=== PATIENT | female | born 1990 | race Caucasian/White ===

== ENCOUNTER 2016-07-30 14:13 | Emergency (ER) | payer SELFPAY ==
[~2016-07-30] VITALS: Ht 175.3 cm; Wt 95.5 kg
[~2016-07-30 14:13] MED LIST: CEPH-460 PO; HYDR-3533 PO; IBUP800T23 PO; LISI10TA3 PO
[2016-07-30 14:17] VITALS: BP 133/67; PULSE 67; RESP 18; TEMP 98.7; O2SAT 99
[2016-07-30] MEDS ORDERED: SODIUM CHLOR 0.9% 1000 ML INJ 1,000 ML IV SCH (15:26)
[2016-07-30] MEDS ORDERED: MORPHINE SULFATE 4 MG/ML INJ IV PUSH ONE (15:30)
[2016-07-30] MEDS ORDERED: ONDANSETRON HCL 4 MG/2 ML VIAL IVP ONE (15:30)
--- NOTE | 2016-07-30 15:32 | PD ---
HPI Chief Complaint: Abdominal Pain Time Seen by Provider: 15:02 Travel History International Travel<30 days: No Contact w/Intl Traveler<30days: No Traveled to known affect area: No History of Present Illness HPI 26-year-old female complains of right low quadrant abdominal pain. Patient states the pain started this morning. Patient stated the pain is sharp pain started at the right lower quadrant of the abdomen with rates into the chest. Patient denies any fever chills. Patient denies any coughing congestion. Patient denies any nausea vomiting diarrhea. Patient denies dysuria or frequency. Patient denies any vaginal discharge or bleeding. On a scale of 1- 10 the pain is an 8. PFSH Past Medical History Asthma: No Blood Disorders: No Anxiety: No Depression: No Heart Rhythm Problems: No Cancer: No Cardiovascular Problems: Yes High Cholesterol: No Chemotherapy: No Chest Pain: No Congestive Heart Failure: No COPD: No Diabetes: No Endocrine: No Genitourinary: No Hypertension: Yes Immune Disorder: No Musculoskeletal: No Neurologic: No Psychiatric: No Reproductive: No Respiratory: No Radiation Therapy: No Sleep Apnea: No Thyroid Disease: No ?: Not LMP: 07/12/2016 Past Surgical History Cholecystectomy: Yes Other Surgery: Yes (gallbladder removal 2014) Social History Alcohol Use: No Tobacco Use: No Substance Use: No Allergies-Medications (Allergen,Severity, Reaction): Coded Allergies: No Known Allergies (Unverified , 07/30/16) Reported Meds & Prescriptions Reported Meds & Active Scripts Active Reported Lisinopril 10 Mg Tab 10 Mg PO DAILY Review of Systems General / Constitutional: No: Fever Eyes: No: Visual changes HENT: No: Headaches Cardiovascular: No: Chest Pain or Discomfort Respiratory: No: Shortness of Breath Gastrointestinal: Positive: Abdominal Pain Genitourinary: No: Dysuria Musculoskeletal: No: Pain Skin: No Rash Neurologic: No: Weakness Psychiatric: No: Depression Endocrine: No: Polydipsia Hematologic/Lymphatic: No: Easy Bruising Physical Exam Narrative GENERAL: Well-nourished, well-developed patient. SKIN: Warm and dry. HEAD: Normocephalic. EYES: No scleral icterus. No injection or drainage. NECK: Supple, trachea midline. No JVD or lymphadenopathy. CARDIOVASCULAR: Regular rate and rhythm without murmurs, gallops, or rubs. RESPIRATORY: Breath sounds equal bilaterally. No accessory muscle use. GASTROINTESTINAL: Abdomen soft, nondistended. Patient has moderate tenderness on palpation right mid abdomen. No rebound tenderness. No mass. MUSCULOSKELETAL: No cyanosis, or edema. BACK: Nontender without obvious deformity. No CVA tenderness. Neurologic exam normal. Data Data Last Documented VS Vital Signs Date Time Temp Pulse Resp B/P Pulse Ox O2 Delivery O2 Flow Rate FiO2 07/30/16 15:42 67 16 131/69 97 Room Air 07/30/16: 98.7 Orders Complete Blood Count With Diff (07/30/16 15:26) Comprehensive Metabolic Panel (07/30/16 15:26) Lipase (07/30/16 15:26) Prothrombin Time / Inr (Pt) (07/30/16:) Act Partial Throm Time (Ptt) (07/30/16 15:26) Urinalysis - C+S If Indicated (07/30/16 15:26) Ct Abd/Pel W Iv Contrast(Rout) (07/30/16 15:26) Iv Access Insert/Monitor (07/30/16 15:26) Ecg Monitoring (07/30/16 15:26) Oximetry (07/30/16 15:26) Morphine Inj (Morphine Inj) (07/30/16 15:30) Ondansetron Inj (Zofran Inj) (07/30/16 15:30) Sodium Chlor 0.9% 1000 Ml Inj (Ns 1000 M (07/30/16 15:26) Ed Urine Pregnancytest Poc (07/30/16 15:29) Iohexol 350 Inj (Omnipaque 350 Inj) (07/30/16 16:58) Labs Laboratory Tests Test 07/30/16 07/30/16 14:28 15:33 White Blood Count 10.3 TH/MM3 Red Blood Count 4.57 MIL/MM3 Hemoglobin 12.9 GM/DL Hematocrit 37.6 % Mean Corpuscular Volume 82.2 FL Mean Corpuscular Hemoglobin 28.2 PG Mean Corpuscular Hemoglobin 34.3 % Concent Red Cell Distribution Width 14.1 % Platelet Count 280 TH/MM3 Mean Platelet Volume 9.4 FL Neutrophils (%) (Auto) 64.6 % Lymphocytes (%) (Auto) 24.1 % Monocytes (%) (Auto) 10.0 % Eosinophils (%) (Auto) 1.0 % Basophils (%) (Auto) 0.3 % Neutrophils # (Auto) 6.7 TH/MM3 Lymphocytes # (Auto) 2.5 TH/MM3 Monocytes # (Auto) 1.0 TH/MM3 Eosinophils # (Auto) 0.1 TH/MM3 Basophils # (Auto) 0.0 TH/MM3 CBC Comment DIFF FINAL Differential Comment Prothrombin Time 11.2 SEC Prothromb Time International 1.0 RATIO Ratio Activated Partial 27.1 SEC Thromboplast Time Sodium Level 140 MEQ/L Potassium Level 4.3 MEQ/L Chloride Level 106 MEQ/L Carbon Dioxide Level 26.2 MEQ/L Anion Gap 8 MEQ/L Blood Urea Nitrogen 8 MG/DL Creatinine 0.66 MG/DL Estimat Glomerular Filtration 107 ML/MIN Rate Random Glucose 74 MG/DL Calcium Level 8.5 MG/DL Total Bilirubin 0.5 MG/DL Aspartate Amino Transf 38 U/L (AST/SGOT) Alanine Aminotransferase 31 U/L (ALT/SGPT) Alkaline Phosphatase 57 U/L Total Protein 6.6 GM/DL Albumin 3.4 GM/DL Lipase 92 U/L Urine Color YELLOW Urine Turbidity HAZY Urine pH 7.0 Urine Specific [place] 1.016 Urine Protein NEG mg/dL Urine Glucose (UA) NEG mg/dL Urine Ketones NEG mg/dL Urine Occult Blood NEG Urine Nitrite NEG Urine Bilirubin NEG Urine Urobilinogen LESS THAN 2.0 MG/DL Urine Leukocyte Esterase NEG Urine RBC 3 /hpf Urine WBC 2 /hpf Urine Squamous Epithelial 1 /hpf Cells Microscopic Urinalysis Comment CULT NOT INDICATED MDM Medical Decision Making Medical Screen Exam Complete: Yes Emergency Medical Condition: Yes Interpretation(s) [address] scan abdomen pelvis showed mild free fluid in the pelvis. CBC within normal limit. CMP within normal limit. UA is negative. Urine test negative. Differential Diagnosis Differential diagnosis including colitis, UTI, pyelonephritis, nephrolithiasis, ovarian cyst, ovarian torsion, ectopic , PID Narrative Course 26-year-old female with right mid abdominal pain. Toradol 30 mg IV given. Diagnosis Primary Impression: Ruptured ovarian cyst Patient Instructions: General Instructions Additional Instructions: Medication as needed for pain. 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 Return if persistent problem or worse. Med/Other Pt SpecificInfo: Prescription(s) given Scripts Tramadol (Ultram)50 Mg Tab50 Mg PO Q6H PRN (PAIN) #20 TAB Prov:lR Mims MD 07/30/16 Meloxicam (Mobic)15 Mg Tab15 Mg PO DAILY #20 TAB Prov:Rl Mims MD 07/30/16 Disposition: 01 DISCHARGE HOME Condition: Stable Rl Mims MD Jul 30, 2016 15:32
[2016-07-30 15:39] VITALS: O2SAT 100
[2016-07-30 15:42] VITALS: BP 131/69; PULSE 67; RESP 16; O2SAT 97
[2016-07-30 15:44] LABS: AUTOMATED NEUTROPHIL # 6.7 TH/MM3 (1.8-7.7); BASOPHIL % 0.3 % (0.0-2.0); EOSINOPHIL # 0.1 TH/MM3 (0-0.4); HEMATOCRIT 37.6 % (35.0-46.0); HEMO FLAGS DIFF FINAL; LYMPH % 24.1 % (9.0-44.0); LYMPHOCYTE # 2.5 TH/MM3 (1.0-4.8); MEAN CELL VOLUME 82.2 FL (80.0-100.0); MEAN CORPUSCULAR HEMOGLOBIN 28.2 PG (27.0-34.0); MEAN CORPUSCULAR HGB CONC 34.3 % (32.0-36.0); NEUT % 64.6 % (16.0-70.0); PLATELET COUNT 280 TH/MM3 (150-450); RED BLOOD COUNT 4.57 MIL/MM3 (4.00-5.30); RED CELL DISTRIBUTION WIDTH 14.1 % (11.6-17.2); WHITE BLOOD COUNT 10.3 TH/MM3 (4.0-11.0)
[2016-07-30 15:51] LABS: APTT (PATIENT) 27.1 SEC (24.3-30.1); PROTHROMBIN TIME - PATIENT 11.2 SEC (9.8-11.6)
[2016-07-30 16:00] LABS: BLOOD, URINE NEG (NEG); COMMENT (UR) CULT NOT INDICATED; CULTURE IF INDICATED CULT NOT INDICATED; GLUCOSE,URINE NEG (NEG); KETONE, URINE NEG (NEG); NITRITE,URINE NEG (NEG); SQUAMOUS EPITHELIAL CELL URINE 1 /hpf (0-5); URINE COLOR YELLOW (YELLW/STRAW)
[2016-07-30 16:22] LABS: ALKALINE PHOSPHATASE 57 U/L (45-117); ALT (GPT) 31 U/L (10-53); ANION GAP 8 MEQ/L (5-15); AST (GOT) 38 U/L (15-37); BICARBONATE 26.2 MEQ/L (21.0-32.0); BLOOD UREA NITROGEN 8 MG/DL (7-18); CHLORIDE 106 MEQ/L (98-107); GLOMERULAR FILTRATION RATE 107 ML/MIN (>89); SODIUM (NA) 140 MEQ/L (136-145); TOTAL BILIRUBIN ADULT 0.5 MG/DL (0.2-1.0)
[2016-07-30 16:25] LABS: POTASSIUM 4.3 MEQ/L (3.5-5.1)
[2016-07-30] MEDS ORDERED: IOHEXOL 350 MG/ML 10 ML VIAL (for RAD DIAG) IV ONE (16:58)
--- NOTE | 2016-07-30 17:01 | RADRPT ---
EXAM DATE/TIME: 07/30/2016 16:40 [facility] COMPARISON: No previous studies available for comparison. INDICATIONS : Right lower abdomen pain starting today. IV CONTRAST: 96 cc Omnipaque 350 (iohexol) IV ORAL CONTRAST: No oral contrast ingested. RADIATION DOSE: 13.20 CTDIvol (mGy) MEDICAL HISTORY : Cardiovascular disease. Hypertension. SURGICAL HISTORY : Cholecystectomy. ENCOUNTER: Initial ACUITY: 1 day PAIN SCALE: 10/10 LOCATION: Right Abdomen TECHNIQUE: Volumetric scanning of the abdomen and pelvis was performed. Using automated exposure control and ad justment of the mA and/or kV according to patient size, radiation dose was kept as low as reasonably achievable to obtain optimal diagnostic quality images. FINDINGS: LOWER LUNGS: The visualized lower lungs are clear. LIVER: Homogeneous density without lesion. There is no dilation of the biliary tree. The patient is status post cholecystectomy. SPLEEN: Normal size without lesion. PANCREAS: Within normal limits. KIDNEYS: Normal in size and shape. There is no mass, stone or hydronephrosis. ADRENAL GLANDS: Within normal limits. VASCULAR: There is no aortic aneurysm. BOWEL/MESENTERY: The stomach, small bowel, and colon demonstrate no acute abnormality. There is no free intraperitone al air. The appendix appears normal. ABDOMINAL WALL: Within normal limits. RETROPERITONEUM: There is no lymphadenopathy. BLADDER: No wall thickening or mass. REPRODUCTIVE: No focal mass is seen. There is mild free fluid in the pelvis. INGUINAL: There is no lymphadenopathy or hernia. MUSCULOSKELETAL: Within normal limits for patient age. CONCLUSION: Mild free fluid in the pelvis. Arik Raymond MD on July 30, 2016 at 16:56 Board Certified Radiologist. This report was verified electronically.
[2016-07-30] MEDS ORDERED: MOBI15TA PO (17:23)
[2016-07-30] MEDS ORDERED: ULTR50TA5 PO (17:23)
[2016-07-30] MEDS ORDERED: KETOROLAC TROMETHAMINE 30 MG/ML (IVP) VIAL IV PUSH ONE (17:30)
[2016-07-30 17:59] VITALS: BP 124/78; PULSE 92; RESP 18; O2SAT 100
== END 2016-07-30 18:11 | disposition home or self-care (01) ==
LOC: NEPA 14:13
DX: N83.291 Other ovarian cyst, right side (principal); I10 Essential (primary) hypertension
CPT/HCPCS: 74177; 80053; 81001; 83690; 84703; 85025; 85610; 85730; 96361; 96374; 96375; 99284; J1885; J2270; J2405; J7030; Q9967

== ENCOUNTER 2016-10-27 21:05 | Emergency (ER) | payer OTHER ==
[~2016-10-27] VITALS: Ht 172.7 cm; Wt 92.0 kg
[~2016-10-27 21:05] MED LIST changes: -CEPH-460 PO; -HYDR-3533 PO; -IBUP800T23 PO; +MOBI15TA PO; +ULTR50TA5 PO
[2016-10-27 21:08] VITALS: BP 144/81; PULSE 60; RESP 16; TEMP 98.3; O2SAT 100
[2016-10-27] MEDS ORDERED: SYNT25TA PO (21:32)
[2016-10-27] MEDS ORDERED: COMBTAB7 PO (21:55)
[2016-10-27] MEDS ORDERED: KALETRA200 PO (21:55)
[2016-10-27] MEDS ORDERED: CYCLOBENZAPRINE HCL 10 MG TAB PO ONE (22:00)
[2016-10-27] MEDS ORDERED: IBUPROFEN 600 MG TAB PO ONE (22:00)
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
[2016-10-27] MEDS ORDERED: CYCL1TAB29 PO (22:08)
[2016-10-27] MEDS ORDERED: AMOX875T PO (22:08)
[2016-10-27] MEDS ORDERED: DICL75TA PO (22:08)
[2016-10-27] MEDS ORDERED: AMOXICILLIN/CLAVULANATE K 500 MG TAB PO ONE (22:15)
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
[2016-10-28 14:27] LABS: HEPATITIS B SURFACE ANTIBODY GREATER THAN 150 mIU/mL
== END 2016-10-27 23:02 | disposition home or self-care (01) ==
LOC: NEPD 21:05
DX: S71.152A Open bite, left thigh, initial encounter (principal); S43.401A Unspecified sprain of right shoulder joint, initial encounter; I10 Essential (primary) hypertension; Y04.1XXA Assault by human bite, initial encounter; Y92.149 Unspecified place in prison as the place of occurrence of the external cause; Y99.0 Civilian activity done for income or pay
CPT/HCPCS: 73030; 86317; 86703; 86803; 99284

== ENCOUNTER 2017-06-30 14:16 | Emergency (ER) | payer OTHER ==
[~2017-06-30 14:16] MED LIST changes: +AMOX875T PO; +COMBTAB7 PO; +CYCL10TA PO; +DICL75TA PO; +KALETRA200 PO; -MOBI15TA PO; +SYNT25TA PO; -ULTR50TA5 PO
[2017-06-30 14:19] VITALS: BP 141/85; PULSE 71; RESP 16; TEMP 98.2; O2SAT 99
[2017-06-30] MEDS ORDERED: ALPR.5 PO (15:23)
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
[2017-06-30 15:35] LABS: AUTOMATED NEUTROPHIL # 8.3 TH/MM3 (1.8-7.7); BASOPHIL % 0.3 % (0.0-2.0); EOSINOPHIL % 0.2 % (0.0-4.0); HEMATOCRIT 36.4 % (35.0-46.0); HEMOGLOBIN 12.5 GM/DL (11.6-15.3); LYMPH % 19.5 % (9.0-44.0); LYMPHOCYTE # 2.2 TH/MM3 (1.0-4.8); MEAN CELL VOLUME 84.3 FL (80.0-100.0); MEAN CORPUSCULAR HGB CONC 34.4 % (32.0-36.0); MEAN PLATELET VOLUME 8.9 FL (7.0-11.0); MONO % 6.9 % (0.0-8.0); MONOCYTE # 0.8 TH/MM3 (0-0.9); NEUT % 73.1 % (16.0-70.0); PLATELET COUNT 321 TH/MM3 (150-450); RED BLOOD COUNT 4.32 MIL/MM3 (4.00-5.30); RED CELL DISTRIBUTION WIDTH 13.8 % (11.6-17.2); WHITE BLOOD COUNT 11.3 TH/MM3 (4.0-11.0)
[2017-06-30 15:49] LABS: BICARBONATE 24.3 MEQ/L (21.0-32.0); CALCIUM 9.4 MG/DL (8.5-10.1); CREATININE 0.86 MG/DL (0.50-1.00)
[2017-06-30 15:56] LABS: BACTERIA, URINE RARE /hpf; BILIRUBIN, URINE NEG (NEG); BLOOD, URINE MOD (NEG); GLUCOSE,URINE NEG (NEG); KETONE, URINE NEG (NEG); NITRITE,URINE NEG (NEG); SQUAMOUS EPITHELIAL CELL URINE 2 /hpf (0-5); URINE COLOR LIGHT-YELLOW (YELLW/STRAW); URINE LEUKOCYTE ESTERASE MOD (NEG)
[2017-06-30] MEDS ORDERED: SODIUM CHLOR 0.9% 1000 ML INJ 1,000 ML IV ONE (16:45)
[2017-06-30] MEDS ORDERED: ONDANSETRON HCL 4 MG/2 ML VIAL IV PUSH ONE (16:45)
--- NOTE | 2017-06-30 18:41 | PD ---
Physical Exam Narrative Patient was seen by ED physician and signed out to me. Data Data Last Documented VS Vital Signs Date Time Temp Pulse Resp B/P (MAP) Pulse Ox O2 Delivery O2 Flow Rate FiO2 06/30/17 15:21 06/30/17 14:19 98.2 71 16 99 Orders Orders Complete Blood Count With Diff (06/30/17 14:30) Basic Metabolic Panel (Bmp) (06/30/17 14:30) Urinalysis - C+S If Indicated (06/30/17 14:30) Drug Screen, Random Urine (06/30/17 14:30) Electrocardiogram (06/30/17 ) Ondansetron Inj (Zofran Inj) (06/30/17 16:45) Sodium Chlor 0.9% 1000 Ml Inj (Ns 1000 M (06/30/17 16:45) Ed Discharge Order (06/30/17 18:39) Labs Laboratory Tests Test 06/30/17 14:48 White Blood Count 11.3 TH/MM3 Red Blood Count 4.32 MIL/MM3 Hemoglobin 12.5 GM/DL Hematocrit 36.4 % Mean Corpuscular Volume 84.3 FL Mean Corpuscular Hemoglobin 29.0 PG Mean Corpuscular Hemoglobin Concent 34.4 % Red Cell Distribution Width 13.8 % Platelet Count 321 TH/MM3 Mean Platelet Volume 8.9 FL Neutrophils (%) (Auto) 73.1 % Lymphocytes (%) (Auto) 19.5 % Monocytes (%) (Auto) 6.9 % Eosinophils (%) (Auto) 0.2 % Basophils (%) (Auto) 0.3 % Neutrophils # (Auto) 8.3 TH/MM3 Lymphocytes # (Auto) 2.2 TH/MM3 Monocytes # (Auto) 0.8 TH/MM3 Eosinophils # (Auto) 0.0 TH/MM3 Basophils # (Auto) 0.0 TH/MM3 CBC Comment DIFF FINAL Differential Comment Urine Color LIGHT-YELLOW Urine Turbidity CLEAR Urine pH 6.0 Urine Specific [place] 1.009 Urine Protein NEG mg/dL Urine Glucose (UA) NEG mg/dL Urine Ketones NEG mg/dL Urine Occult Blood MOD Urine Nitrite NEG Urine Bilirubin NEG Urine Urobilinogen LESS THAN 2.0 MG/DL Urine Leukocyte Esterase MOD Urine RBC 2 /hpf Urine WBC 1 /hpf Urine Squamous Epithelial Cells 2 /hpf Urine Bacteria RARE /hpf Microscopic Urinalysis Comment CULT NOT INDICATED Blood Urea Nitrogen 15 MG/DL Creatinine 0.86 MG/DL Random Glucose 82 MG/DL Calcium Level 9.4 MG/DL Sodium Level 138 MEQ/L Potassium Level 3.9 MEQ/L Chloride Level 105 MEQ/L Carbon Dioxide Level 24.3 MEQ/L Anion Gap 9 MEQ/L Estimat Glomerular Filtration Rate 78 ML/MIN Urine Opiates Screen NEG Urine Barbiturates Screen NEG Urine Amphetamines Screen NEG Urine Benzodiazepines Screen NEG Urine Cocaine Screen NEG Urine Cannabinoids Screen NEG MDM Supervised Visit with YOVANI: No Narrative Course 1840 p.m. Patient feeling better. Patient will be discharged. Diagnosis Primary Impression: Exposure to potentially hazardous substances Additional Instruction: Follow-up with personal physician as needed. Return if worse. Med/Other Pt SpecificInfo: No Change to Meds Disposition: 01 DISCHARGE HOME Condition: Stable Rl Mims MD Jun 30, 2017 18:41
--- NOTE | 2017-07-02 08:33 | EKG ---
Date Performed: 06/30/2017 Time Performed: 14:45:43 PTAGE: 27 years EKG: Sinus rhythm Compared to previous tracing sinus rate is faster NORMAL ECG PREVIOUS TRACING : 01/21/2016 06.31 DOCTOR: Ramon Boudreaux Interpretating Date/Time 07/02/2017 08:31:55
== END 2017-06-30 18:47 | disposition home or self-care (01) ==
LOC: NEPD 14:16
DX: Z77.098 Contact with and (suspected) exposure to other hazardous, chiefly nonmedicinal, chemicals (principal); I10 Essential (primary) hypertension; X58.XXXA Exposure to other specified factors, initial encounter
CPT/HCPCS: 80048; 80307; 81001; 85025; 93005; 96374; 99284; J2405; J7030